=== PATIENT | female | born 1950 | race African-American/Black ===

== ENCOUNTER 2022-03-07 18:38 | Inpatient (IN) ==
[2022-03-07] MEDS ORDERED: PANTOPRAZOLE 40 MG VIAL IV STA (20:37)
[2022-03-07] MEDS ORDERED: SODIUM CHLORIDE 0.9% 1,000 ML IV STA (20:37)
[2022-03-07] MEDS ORDERED: ONDANSETRON 4 MG/2 ML VIAL IV STA (20:37)
[2022-03-07 20:58] LABS: Basophils % 0.1 % (0.0-0.8); Eosinophils % 0.4 % (0.00-10.9); Hematocrit 37.9 VOL% (35.7-47.0); Hemoglobin 11.8 GM/DL (12.0-16.0); Immature Granulocytes % 0.4 %; Immature Granulocytes Absolute 0.03 #; Lymphocytes # 1.1 10*3/uL (1.4-4.0); Lymphocytes % 12.9 % (21.3-54.2); Mean Corpuscular HGB Conc 31.1 GM/DL (32-36); Mean Corpuscular Volume 71.8 FL (87-102); Mean Platelet Volume 11.8 FL (9.6-12.0); Monocytes # 0.3 10*3/uL (0.11-0.8); Monocytes % 3.8 % (1.7-12.7); Neutrophils % 82.4 % (38.7-73.9); Platelet Count 127 T/CUMM (130-400); Red Blood Count 5.28 MC/CUMM (3.8-5.5); White Blood Count 8.5 T/CUMM (4-12)
[2022-03-07 21:25] LABS: Albumin 3.7 G/DL (3.4-5.0); Bilirubin,Total 0.6 MG/DL (0.20-1.00); Calcium 10.1 MG/DL (8.5-10.1); Osmolality,Calculated 269.2 MOS/KG (273-304); Potassium 3.6 MMOL/L (3.5-5.1); Total Protein 8.5 G/DL (6.4-8.2)
[2022-03-07 21:30] LABS: Lymphocytes 12 % (20-55); Total Cells Counted 100
[2022-03-07 21:31] LABS: Anisocytosis 1+; Platelet Estimate Decreased
[2022-03-07 21:32] LABS: Hypochromia 1+; Microcytosis 1+
[2022-03-07 22:06] LABS: Mucus,Urine Occasional /LPF (Occasional); RBC,Urine 2 /HPF (0-4)
[2022-03-07 22:10] LABS: Bilirubin,Urine Negative (Negative); Blood, Urine Moderate mg/dL (Negative); Glucose,Urine (UA) Negative (Negative); Ketones,Urine 40 mg/dL (Negative); Nitrite,Urine Negative (Negative); Protein,Urine Negative (Negative); Urine Appearance Clear (Clear); Urine Color Yellow (Yellow); Urine Specific Gravity 1.025 (1.001-1.035); Urine Urobilinogen 0.2 eU/dL (<2.0); Urine pH 7.5 (4.5-8.0)
[2022-03-07] MEDS ORDERED: METOCLOPRAMIDE 10 MG/2 ML VIAL IV STA (22:14)
[2022-03-07] MEDS ORDERED: GLUCAGON 1 MG VIAL IM PRN (23:29)
[2022-03-07] MEDS ORDERED: DEXTROSE 10% 250 ML BAG IV PRN (23:39)
[2022-03-08] MEDS: SODIUM CHLORIDE 0.9% 1,000 ML IV SCH ×2 (00:50→13:43)
[2022-03-08] MEDS: ONDANSETRON 4 MG/2 ML VIAL IV PRN ×5 (03:43→21:56)
[2022-03-08 07:24] LABS: Basophils % 0.1 % (0.0-0.8); Eosinophils % 0.1 % (0.00-10.9); Hematocrit 33.7 VOL% (35.7-47.0); Hemoglobin 10.8 GM/DL (12.0-16.0); Immature Granulocytes % 0.3 %; Immature Granulocytes Absolute 0.03 #; Lymphocytes # 1.8 10*3/uL (1.4-4.0); Lymphocytes % 20.8 % (21.3-54.2); Mean Corpuscular Volume 69.3 FL (87-102); Mean Platelet Volume 10.6 FL (9.6-12.0); Monocytes # 0.6 10*3/uL (0.11-0.8); Monocytes % 7.1 % (1.7-12.7); Neutrophils % 71.6 % (38.7-73.9); Platelet Count 297 T/CUMM (130-400); Red Blood Count 4.86 MC/CUMM (3.8-5.5); Red Cell Distribution Width 15.5 % (9.3-17.3); White Blood Count 8.8 T/CUMM (4-12)
[2022-03-08 07:46] LABS: Albumin 3.1 G/DL (3.4-5.0); Bilirubin,Total 0.7 MG/DL (0.20-1.00); Calcium 9.2 MG/DL (8.5-10.1); Osmolality,Calculated 275.5 MOS/KG (273-304); Potassium 3.2 MMOL/L (3.5-5.1); Total Protein 7.6 G/DL (6.4-8.2)
[2022-03-08] MEDS: ENOXAPARIN 40 MG/0.4 ML SYRINGE SUBCUT SCH (09:04)
[2022-03-08] MEDS: amLODIPine 2.5 MG TABLET PO SCH (09:09)
[2022-03-08] MEDS: LOSARTAN/HCTZ 50-12.5 MG TABLET PO SCH (09:09)
[2022-03-08] MEDS: PANTOPRAZOLE 40 MG TABLET PO SCH (09:09)
[2022-03-08 10:03] LABS: Basophils % 0.2 % (0.0-0.8); Eosinophils % 0.1 % (0.00-10.9); Hematocrit 34.7 VOL% (35.7-47.0); Hemoglobin 10.9 GM/DL (12.0-16.0); Immature Granulocytes % 0.3 %; Immature Granulocytes Absolute 0.03 #; Lymphocytes # 2.8 10*3/uL (1.4-4.0); Lymphocytes % 31.1 % (21.3-54.2); Mean Corpuscular HGB Conc 31.4 GM/DL (32-36); Mean Corpuscular Volume 71.4 FL (87-102); Mean Platelet Volume 12.1 FL (9.6-12.0); Monocytes # 0.7 10*3/uL (0.11-0.8); Monocytes % 7.5 % (1.7-12.7); Neutrophils % 60.8 % (38.7-73.9); Platelet Count 297 T/CUMM (130-400); Red Blood Count 4.86 MC/CUMM (3.8-5.5); Red Cell Distribution Width 15.9 % (9.3-17.3); White Blood Count 9.1 T/CUMM (4-12)
[2022-03-08] MEDS: INSULIN REGULAR 100 UNIT/ML SUBCUT SCH ×4 (10:54→21:56)
[2022-03-08] MEDS: POTASSIUM CHLORIDE 20 MEQ TABLET PO PRN (14:56)
[2022-03-09] MEDS: ONDANSETRON 4 MG/2 ML VIAL IV PRN ×2 (01:24→06:47)
[2022-03-09] MEDS: SODIUM CHLORIDE 0.9% 1,000 ML IV SCH ×2 (04:20→19:40)
[2022-03-09 04:50] LABS: Basophils % 0.2 % (0.0-0.8); Eosinophils % 0.3 % (0.00-10.9); Hematocrit 34.5 VOL% (35.7-47.0); Hemoglobin 10.8 GM/DL (12.0-16.0); Immature Granulocytes % 0.5 %; Immature Granulocytes Absolute 0.03 #; Lymphocytes # 1.8 10*3/uL (1.4-4.0); Lymphocytes % 28.6 % (21.3-54.2); Mean Corpuscular HGB Conc 31.3 GM/DL (32-36); Mean Corpuscular Volume 70.8 FL (87-102); Mean Platelet Volume 11.6 FL (9.6-12.0); Monocytes # 0.5 10*3/uL (0.11-0.8); Monocytes % 8.7 % (1.7-12.7); Neutrophils % 61.7 % (38.7-73.9); Platelet Count 313 T/CUMM (130-400); Red Blood Count 4.87 MC/CUMM (3.8-5.5); Red Cell Distribution Width 15.3 % (9.3-17.3); White Blood Count 6.2 T/CUMM (4-12)
[2022-03-09 05:07] LABS: Calcium 9.5 MG/DL (8.5-10.1); Osmolality,Calculated 273.5 MOS/KG (273-304); Potassium 2.9 MMOL/L (3.5-5.1)
[2022-03-09] MEDS ORDERED: POTASSIUM CHLORIDE 20 MEQ TABLET PO ONE (07:10)
[2022-03-09] MEDS ORDERED: MAGNESIUM SULF RIDER 2 GM/50 ML PREMIX IV ONE (07:11)
[2022-03-09] MEDS: INSULIN REGULAR 100 UNIT/ML SUBCUT SCH ×4 (08:20→20:37)
[2022-03-09] MEDS: ENOXAPARIN 40 MG/0.4 ML SYRINGE SUBCUT SCH (09:49)
[2022-03-09] MEDS: amLODIPine 2.5 MG TABLET PO SCH (09:50)
[2022-03-09] MEDS: LOSARTAN/HCTZ 50-12.5 MG TABLET PO SCH (09:50)
[2022-03-09] MEDS: PANTOPRAZOLE 40 MG TABLET PO SCH (09:50)
[2022-03-09] MEDS: ACETAMINOPHEN 325 MG TABLET PO PRN ×2 (13:11→19:35)
[2022-03-09 15:05] LABS: Calcium 9.8 MG/DL (8.5-10.1); Osmolality,Calculated 260.5 MOS/KG (273-304); Potassium 3.2 MMOL/L (3.5-5.1)
[2022-03-09] MEDS: POTASSIUM CHLORIDE 20 MEQ TABLET PO PRN (20:37)
[2022-03-09] MEDS: PANTOPRAZOLE 40 MG VIAL IV SCH (20:37)
[2022-03-10] MEDS: SODIUM CHLORIDE 0.9% 1,000 ML IV SCH ×3 (04:02→23:06)
[2022-03-10 05:19] LABS: Basophils % 0.3 % (0.0-0.8); Eosinophils # 0.1 10*3/uL (0.0-0.87); Eosinophils % 1.4 % (0.00-10.9); Hematocrit 35.7 VOL% (35.7-47.0); Hemoglobin 11.2 GM/DL (12.0-16.0); Immature Granulocytes % 0.2 %; Immature Granulocytes Absolute 0.01 #; Lymphocytes # 3.5 10*3/uL (1.4-4.0); Lymphocytes % 55.9 % (21.3-54.2); Mean Corpuscular HGB Conc 31.4 GM/DL (32-36); Mean Platelet Volume 11.8 FL (9.6-12.0); Monocytes # 0.6 10*3/uL (0.11-0.8); Monocytes % 9.6 % (1.7-12.7); Neutrophils % 32.6 % (38.7-73.9); Platelet Count 296 T/CUMM (130-400); Red Blood Count 5.03 MC/CUMM (3.8-5.5); Red Cell Distribution Width 15.6 % (9.3-17.3); White Blood Count 6.2 T/CUMM (4-12)
[2022-03-10 05:32] LABS: Calcium 9.4 MG/DL (8.5-10.1); Osmolality,Calculated 269.8 MOS/KG (273-304); Potassium 3.4 MMOL/L (3.5-5.1)
[2022-03-10 05:48] LABS: Eosinophils 1 % (0-10); Lymphocytes 55 % (20-55); Total Cells Counted 100
[2022-03-10 05:49] LABS: Elliptocytes Few; Hypochromia 3+; Platelet Estimate Normal; Target Cells Few
[2022-03-10 05:50] LABS: Microcytosis 1+
[2022-03-10] MEDS: INSULIN REGULAR 100 UNIT/ML SUBCUT SCH ×4 (08:12→21:24)
[2022-03-10] MEDS: amLODIPine 2.5 MG TABLET PO SCH (09:43)
[2022-03-10] MEDS: POTASSIUM CHLORIDE 20 MEQ TABLET PO PRN (09:43)
[2022-03-10] MEDS: LOSARTAN/HCTZ 50-12.5 MG TABLET PO SCH (09:43)
[2022-03-10] MEDS: PANTOPRAZOLE 40 MG VIAL IV SCH ×2 (09:44→21:10)
[2022-03-10] MEDS: ENOXAPARIN 40 MG/0.4 ML SYRINGE SUBCUT SCH (09:44)
[2022-03-10] MEDS ORDERED: POTASSIUM CHLORIDE 20 MEQ TABLET PO ONE (14:12)
[2022-03-11 06:31] LABS: Calcium 9.2 MG/DL (8.5-10.1); Osmolality,Calculated 272.7 MOS/KG (273-304); Potassium 3.9 MMOL/L (3.5-5.1)
[2022-03-11] MEDS: amLODIPine 5 MG TABLET PO SCH (09:47)
[2022-03-11] MEDS: ENOXAPARIN 40 MG/0.4 ML SYRINGE SUBCUT SCH (09:47)
[2022-03-11] MEDS: PANTOPRAZOLE 40 MG VIAL IV SCH (09:48)
[2022-03-11] MEDS: INSULIN REGULAR 100 UNIT/ML SUBCUT SCH ×4 (10:59→20:30)
[2022-03-11] MEDS: ACETAMINOPHEN 325 MG TABLET PO PRN ×3 (11:33→23:05)
[2022-03-11] MEDS: SODIUM CHLORIDE 0.9% 1,000 ML IV SCH (17:42)
[2022-03-11] MEDS: PANTOPRAZOLE 20 MG TABLET PO SCH (21:45)
[2022-03-12] MEDS: INSULIN REGULAR 100 UNIT/ML SUBCUT SCH ×2 (08:43→12:37)
[2022-03-12] MEDS: PANTOPRAZOLE 20 MG TABLET PO SCH (08:57)
[2022-03-12] MEDS: amLODIPine 5 MG TABLET PO SCH (08:57)
[2022-03-12] MEDS: ENOXAPARIN 40 MG/0.4 ML SYRINGE SUBCUT SCH (08:58)
[2022-03-12 12:35] VITALS: BP 127/80
== END 2022-03-12 15:47 | DRG 392 ==
LOC: N.TELEN 18:38 → N.ED 18:38 → N.TELEN 03-08 02:36 → SUATTDRO 03-09 08:58
PROVIDERS: ADMIT Internal Medicine; ATTEND Family Medicine